=== PATIENT | female | born 1970 | race Two or more races ===

== ENCOUNTER 2016-07-26 04:18 | Emergency (ER) | payer MEDICAID, OTHER ==
[2016-07-26] MEDS ORDERED: IBUPROFEN 800 MG TABLET ONE (05:11)
[2016-07-26] MEDS ORDERED: DIPHENHYDRAMINE HCL 50 MG CAPSULE ONE (05:11)
== END 2016-07-26 05:34 | disposition home or self-care (01) ==
LOC: ED 04:18
DX: J06.9 Acute upper respiratory infection, unspecified (principal)
CPT/HCPCS: 99283 ×2; A9270 ×2